=== PATIENT | female | born 1995 | race Caucasian/White ===

== ENCOUNTER 2018-02-03 06:39 | Inpatient (IN) | payer MEDICAID ==
[~2018-02-03] VITALS: Ht 154.9 cm; Wt 61.2 kg
--- NOTE | ~2018-02-03 | MORECARE ---
CASE MANAGEMENT DISCHARGE SUMMARY PATIENT: VICKY BOJORQUEZ UNIT: [id number] ADM DATE: 02/03/18 AGE: 22 : [birth year] SEX: F ROOM/BED: D.1276 AUTHOR: FAVIAN CAMARENA PHYSICIAN: REFERRING PHYSICIAN: JOANNA AVENDAÑO MD DATE OF SERVICE: 02/04/18 Discharge Plan Patient Name: VICKY BOJORQUEZ Facility: [facility]:[place] : 1995 Planned Disposition: Anticipated Discharge Date: Discharge Date: Expected LOS: Initial Reviewer: [email or web address] Initial Review Date: 02/03/2018 Generated: 02/04/18 10:24 am Patient Name: VICKY BOJORQUEZ Page 11322 at 0925 All edits/amendments must be made on the electronic document DICTATION DATE: 02/04/18923 BEAM DYER OPERATOR: CHANTELL 02/04/18923 RPT#: [id number] DC DATE: STATUS: ADM IN [facility] [address] [place] [address] END OF REPORT
--- NOTE | ~2018-02-03 | MORECARE ---
CASE MANAGEMENT DISCHARGE SUMMARY PATIENT: VICKY BOJORQUEZ UNIT: [id number] ADM DATE: 02/03/18 AGE: 22 : [birth year] SEX: F ROOM/BED: D.1276 AUTHOR: FAVIAN CAMARENA PHYSICIAN: REFERRING PHYSICIAN: JOANNA AVENDAÑO MD DATE OF SERVICE: 02/05/18 Discharge Plan Patient Name: VICKY BOJORQUEZ [facility] [facility] 1995 Planned Disposition: Anticipated Discharge Date: Discharge Date: 02/05/2018 Expected LOS: Initial Reviewer: [email or web address] Initial Review Date: 02/03/2018 Generated: 02/05/18 10:52 am Last DP export: 02/04/18 8:25 Patient Name: VICKY BOJORQUEZ Page [id number] at 0952 All edits/amendments must be made on the electronic document DICTATION DATE: 02/05/18951 RADIOCOMMUNICATIONS TECHNICIAN: DM 02/05/18951 RPT#: [id number] DC DATE:02/05/18 STATUS: DIS IN [facility] [address] [place] [address] END OF REPORT
[2018-02-03 07:21] LABS: UDS - AMPHET NEGATIVE QUAL (NEGATIVE); UDS - BARB NEGATIVE QUAL (NEGATIVE); UDS - BENZO NEGATIVE QUAL (NEGATIVE); UDS - COCAINE NEGATIVE QUAL (NEGATIVE); UDS - OPIATE NEGATIVE QUAL (NEGATIVE); UDS - PCP NEGATIVE QUAL (NEGATIVE); UDS - THC NEGATIVE QUAL (NEGATIVE)
[2018-02-03 07:29] LABS: APPEARANCE HAZY (CLEAR); BILIRUBIN NEGATIVE (NEGATIVE); COLOR YELLOW (YELLOW); GLUCOSE NEGATIVE (NEGATIVE); KETONE SMALL mg/dL (NEGATIVE); NITRITE NEGATIVE (NEGATIVE); PROTEIN 1+ mg/dL (NEGATIVE); UROBILINOGEN NORMAL (NORMAL)
[2018-02-03 07:31] LABS: AMORPHOUS SEDIMENT <1+ /lpf (NONE SEEN); BACTERIA FEW /hpf (NONE SEEN); EPITHELIAL CELLS 0-5 /hpf (0-5); MUCUS <1+ /lpf (NONE SEEN); RED CELLS - URINE 0-5 /hpf (0-5)
[2018-02-03] MEDS ORDERED: PRENAVITE1 TAB PO (09:20)
[2018-02-03] MEDS ORDERED: ACETAMINOPHEN500 M1 PO (09:20)
[2018-02-03 09:47] VITALS: BP 122/68; Ht 154.9 cm; Wt 61.2 kg
[2018-02-03 10:15] LABS: HEMATOCRIT 33.1 % (36.0-48.0); HEMOGLOBIN 11.8 g/dL (12-16); MCH 33.4 pg (26.0-34.0); MCHC 35.6 g/dL (31.0-37.0); MCV 93.8 fL (80.0-100.0); MEAN PLATELET VOLUME 12.1 fL (7.4-10.4); RBC 3.53 10x6/uL (4.00-5.40); RDW 13.3 % (11.5-14.5); WBC 8.9 10x3/uL (4.8-10.8)
[2018-02-03 10:45] LABS: HIV 1 & 2- RAPID SCREEN NEGATIVE (NEGATIVE)
[2018-02-03 23:39] VITALS: BP 111/59
[2018-02-04 06:15] LABS: RAPID PLASMA REAGIN Non Reactive (Non Reactive)
[2018-02-04 06:26] LABS: BASOPHILS 0.1 % (0-2); EOSINOPHILS 1.6 % (0-7); HEMATOCRIT 31.8 % (36.0-48.0); IMMATURE GRANULOCYTES 0.2 % (0-5); LYMPHOCYTES 18.4 % (15-50); MCH 32.5 pg (26.0-34.0); MCHC 34.6 g/dL (31.0-37.0); MCV 94.1 fL (80.0-100.0); MONOCYTES 4.4 % (2-11); NEUTROPHILS 75.3 % (40-80); PLATELET COUNT 115 10x3/uL (130-400); RBC 3.38 10x6/uL (4.00-5.40); RDW 13.2 % (11.5-14.5); WBC 8.8 10x3/uL (4.8-10.8)
[2018-02-04 08:19] VITALS: BP 110/53
[2018-02-04 13:27] VITALS: BP 100/52
[2018-02-04 19:18] VITALS: BP 112/52
[2018-02-05] MEDS ORDERED: HYDROCODON-ACE1 EAC7 PO (05:15)
[2018-02-05] MEDS ORDERED: IBUPROFEN600 MG PO (05:15)
== END 2018-02-05 05:48 | disposition home or self-care (01) | DRG 806 ==
LOC: D.LD 06:39
PROVIDERS: Obstetrics & Gynecology
PROC: 10E0XZZ Delivery of Products of Conception, External Approach (ICD-10-PCS; principal; 2018-02-03)
DX: O60.14X0 Preterm labor third trimester with preterm delivery third trimester, not applicable or unspecified (principal); O36.0930 Maternal care for other rhesus isoimmunization, third trimester, not applicable or unspecified; Z37.0 Single live birth; Z3A.34 34 weeks gestation of pregnancy; O42.90 Premature rupture of membranes, unspecified as to length of time between rupture and onset of labor, unspecified weeks of gestation

== ENCOUNTER 2018-04-04 06:25 | Day surgery (SDC) | payer MEDICAID ==
[2018-04-02 16:25] LABS: BASOPHILS 0.7 % (0-2); EOSINOPHILS 2.4 % (0-7); HEMATOCRIT 39.4 % (36.0-48.0); HEMOGLOBIN 13.9 g/dL (12-16); LYMPHOCYTES 36.5 % (15-50); MCH 31.4 pg (26.0-34.0); MCHC 35.3 g/dL (31.0-37.0); MCV 89.1 fL (80.0-100.0); MEAN PLATELET VOLUME 12.4 fL (7.4-10.4); MONOCYTES 4.8 % (2-11); NEUTROPHILS 55.6 % (40-80); PLATELET COUNT 168 10x3/uL (130-400); RBC 4.42 10x6/uL (4.00-5.40); RDW 12.1 % (11.5-14.5); WBC 4.6 10x3/uL (4.8-10.8)
[~2018-04-04] VITALS: Ht 154.9 cm; Wt 52.6 kg
[~2018-04-04 06:25] MED LIST: ACETAMINOPHEN500 M1 PO; HYDROCODON-ACE1 EAC7 PO; IBUPROFEN600 MG PO; PRENAVITE1 TAB PO
[2018-04-04 08:06] VITALS: BP 107/60; Ht 154.9 cm; Wt 52.6 kg
[2018-04-04 08:24] LABS: HCG URINE NEGATIVE (NEGATIVE)
--- NOTE | 2018-04-23 16:44 | OP ---
PATIENT NAME: VICKY BOJORQUEZ MEDICAL RECORD: [id number] :[birth year] LOCATION:.[facility] ADMISSION DATE: SURGEON: JOANNA OLIVIER MD DATE OF OPERATION: 04/04/2018 PREOPERATIVE DIAGNOSES: 1. Multiparity. 2. The patient desires permanent sterility. POSTOPERATIVE DIAGNOSES: 1. Multiparity. 2. The patient desires permanent sterility. PROCEDURE: Laparoscopic bilateral tubal ligation via bipolar cautery. SURGEON: Joanna Olivier MD ANESTHESIA: General endotracheal. INTRAVENOUS FLUIDS: Per anesthesia record. ESTIMATED BLOOD LOSS: Minimal. SPECIMENS: None. FINDINGS: Grossly normal-appearing uterus, fallopian tubes, and ovaries. COMPLICATIONS: None apparent. PROCEDURE: The patient taken to the operating room where general anesthesia was achieved without difficulty. The patient was then prepped and draped in normal sterile fashion in the dorsal lithotomy position in the [facility]. The patient was prepped and draped and the bladder was drained of approximately 100 cc of clear yellow urine. At this point, a sponge stick was placed into the vagina and attention was then turned to the umbilicus where a 5-mm incision made in the inferior aspect. The 5 mm bladeless trocar was then used to enter the intraperitoneal space under direct visualization of the laparoscope. The introducer was removed and opening pressure was found to be less than 10 mmHg. The patient was then insufflated and intraperitoneal placement was confirmed via entry of the laparoscope into the intraperitoneal space. A second port was then placed a 5 cm above the pubic symphysis in the midline and a 5 mm bladeless trocar was then used to enter the intraperitoneal space under direct visualization of the laparoscope. The tubes were identified and a 5-6 cm portion of the midsection of the tube was fully desiccated using the Gyrus bipolar cautery paddles. Good hemostasis was noted from all surgical sites. The abdomen and pelvis was checked for any undiagnosed pathology. The patient was then desufflated and the ports were removed. The skin was repaired with 3-0 Monocryl in an interrupted fashion. Sponge stick was then removed from the vagina. The patient tolerated procedure well, transferred to postanesthesia recovery stable without incident. TRANSINT:[id number] Voice Confirmation ID: [id number] DOCUMENT ID: [id number] OPERATIVE REPORT [id number] MARYELLEN,VICKYOJANNA AGUILAR MD at 1644 CC: [id number] DICTATION DATE: 04/20/18 1414 FERRY BOAT CAPTAIN: 04/20/182042 [facility] 04/04/18 [id number] [place] [address]
== END 2018-04-04 14:32 | disposition home or self-care (01) ==
LOC: D.OPS 06:25 → D.PAN 08:30 → D.OPS 08:30
PROVIDERS: Obstetrics & Gynecology
DX: Z30.2 Encounter for sterilization (principal); F32.9 Major depressive disorder, single episode, unspecified; Z72.0 Tobacco use